=== PATIENT | female | born 1980 | race Hispanic/Latino ===

== ENCOUNTER 2017-01-26 14:22 | Outpatient (CLI) | payer BC ==
--- NOTE | 2017-01-26 15:33 | Ultrasound Report ---
RIGHT DIGITAL DIAGNOSTIC MAMMOGRAM with CAD and RIGHT BREAST ULTRASOUND: 01/26/17 14:22:00 CLINICAL: Short-term followup for asymmetry. COMPARISON:10/27/16 mammogram and ultrasound from [facility] FINDINGS: The breast is predominantly fatty with stable asymmetric upper outer fibroglandular densities which demonstrate partial effacement with spot compression. The asymmetry spreads out on rolled CC views. No mass, architectural distortion or suspicious calcifications. Ultrasound of the upper outer right breast was performed and demonstrated an oval cyst at 10 o'clock 3 cm from nipple measuring 8 x 6 x 4 mm and a lobulated cyst versus a lymph node at 10 o'clock 1 cm from the nipple measuring 7 x 6 x 3 mm. No solid mass or shadowing. The larger cyst was described on the previous ultrasound and is unchanged. IMPRESSION: 1. A stable probably benign upper outer right parenchymal asymmetry with no ultrasound correlate. 2. A benign cyst at 10 o'clock 3 cm from the nipple and a benign lobulated cyst versus lymph node at 10 o'clock 1 cm from the nipple. BI-RADS CATEGORY: 3 - - Probably Benign RECOMMENDATION: Six month followup right mammogram and ultrasound if needed. ACR BI-RADS MAMMOGRAPHIC CODES: 0 = Needs additional imaging evaluation; 1 = Negative; 2 = Benign; 3 = Probably benign; 4 = Suspicious; 5 = Malignant; 6 = Known biopsy-proven malignancy COMMENT: 1. Dense breast tissue, i.e., adenosis, fibrocystic changes, etc., may obscure an underlying neoplasm. 2. Approximately 10% of cancers are not detected with mammography. 3. A negative mammography report should not delay biopsy if a clinically suspicious mass is present. COMMENT: Patient follow-up letters are generated by our [employer] application.
== END 2017-01-26 14:23 | disposition home or self-care (01) ==
LOC: SPVWC 14:22
PROVIDERS: ATTEND Surgery
DX: N60.01 Solitary cyst of right breast (principal); N64.89 Other specified disorders of breast; Z87.891 Personal history of nicotine dependence
CPT/HCPCS: 76642; G0206

== ENCOUNTER 2017-07-20 12:38 | Outpatient (CLI) | payer BC ==
--- NOTE | 2017-07-20 13:36 | Mammography Report ---
RIGHT DIGITAL DIAGNOSTIC MAMMOGRAM with CAD: 07/20/17 12:38:00 CLINICAL: Follow-up probably benign asymmetry. COMPARISON:01/26/17 FINDINGS: The breast is heterogeneously dense with a stable fibroglandular pattern. No mass, architectural distortion or suspicious calcifications. IMPRESSION: No mammographic evidence of malignancy. BI-RADS CATEGORY: 2 -- Benign RECOMMENDATION: Return to routine mammographic screening. ACR BI-RADS MAMMOGRAPHIC CODES: 0 = Needs additional imaging evaluation; 1 = Negative; 2 = Benign; 3 = Probably benign; 4 = Suspicious; 5 = Malignant; 6 = Known biopsy-proven malignancy COMMENT: 1. Dense breast tissue, i.e., adenosis, fibrocystic changes, etc., may obscure an underlying neoplasm. 2. Approximately 10% of cancers are not detected with mammography. 3. A negative mammography report should not delay biopsy if a clinically suspicious mass is present. COMMENT: Patient follow-up letters are generated by our [employer] application.
== END 2017-07-20 12:39 | disposition home or self-care (01) ==
LOC: SPVWC 12:38
PROVIDERS: ATTEND Surgery
DX: R92.8 Other abnormal and inconclusive findings on diagnostic imaging of breast (principal)
CPT/HCPCS: G0206-RT